=== PATIENT | male | born 1955 | race Caucasian/White ===

== ENCOUNTER 2022-11-02 15:23 | Observation (INO) | payer BC, OTHER ==
[2022-11-02 15:41] VITALS: BMI 28.4
[2022-11-02 17:38] LABS: PH,URINE 5.5 (5.0-8.0); URINE APPEARANCE CLEAR; URINE BILIRUBIN NEGATIVE (NEGATIVE); URINE COLOR YELLOW; URINE GLUCOSE (UA) NEGATIVE (NEGATIVE); URINE KETONE NEGATIVE (NEGATIVE); URINE LEUK ESTERASE NEGATIVE (NEGATIVE); URINE NITRITE NEGATIVE (NEGATIVE); URINE PROTEIN NEGATIVE (NEGATIVE); URINE UROBILINOGEN 0.2 mg/dL (0.2-1.0)
[2022-11-02 17:52] LABS: INR 0.97 (0.83-1.09); PROTHROMBIN TIME (PATIENT) 11.3 SEC (9.7-13.0)
[2022-11-02 17:55] LABS: ACTIVATED PTT 34.5 SECONDS (25.2-36.5)
[2022-11-02 17:56] LABS: POTASSIUM 4.2 mmol/L (3.5-5.1)
[2022-11-02 17:58] LABS: BLOOD UREA NITROGEN 9.9 mg/dL (7-18); CALCIUM 8.8 mg/dL (8.5-10.1)
[2022-11-02 18:00] LABS: ALBUMIN 2.9 g/dl (3.4-5.0)
[2022-11-02 18:03] LABS: BILIRUBIN,TOTAL 0.1 mg/dL (0.2-1); CREATININE 1.2 mg/dL (0.55-1.3); TOT PROT 5.8 g/dl (6.4-8.2)
[2022-11-02 18:07] LABS: N-TERMINAL BNP 32.1 pg/ml (5-125)
[2022-11-02 19:19] LABS: BASO % 0.6 % (0-2.0); EOS % 2.2 % (0-4.5); HEMATOCRIT 31.2 % (35.4-49); HEMOGLOBIN 10.7 GM/dL (11.7-16.9); LYMPH % 44.8 % (8-40); MCH 29.7 pg (25.7-33.7); MCHC 34.3 g/dl (32.0-35.9); MEAN CELL VOLUME 86.5 fl (80-96); MEAN PLT VOLUME 7.7 fl (7.5-11.1); MONO % 10.5 % (3.8-10.2); NEUT % 41.9 % (42.8-82.8); PLATELET COUNT 305 10^3/uL (134-434); RBC 3.61 M/mm3 (4.00-5.60); WHITE BLOOD COUNT 9.4 K/mm3 (4.0-10.0)
[2022-11-03] MEDS: risperiDONE 1 MG TABLET PO SCH ×2 (01:18→22:21)
[2022-11-03] MEDS: DIVALPROEX NA *ER* EXTEND REL 500 MG TABLET.SA (FP) PO SCH ×3 (01:23→22:21)
[2022-11-03] MEDS: INSULIN SLIDING SCALE (NOVOLOG) 1 VIAL SQ SCH ×4 (06:03→22:20)
[2022-11-03] MEDS ORDERED: LEVOTHYROXINE NA 50 MCG TABLET (FP) PO SCH (07:00)
[2022-11-03 08:38] LABS: POTASSIUM 4.3 mmol/L (3.5-5.1)
[2022-11-03 08:41] LABS: BASO % 0.7 % (0-2.0); EOS % 2.7 % (0-4.5); HEMATOCRIT 32.6 % (35.4-49); HEMOGLOBIN 11.3 GM/dL (11.7-16.9); LYMPH % 36.1 % (8-40); MCHC 34.8 g/dl (32.0-35.9); MEAN CELL VOLUME 86.3 fl (80-96); MEAN PLT VOLUME 8.6 fl (7.5-11.1); NEUT % 51.5 % (42.8-82.8); PLATELET COUNT 322 10^3/uL (134-434); RBC 3.78 M/mm3 (4.00-5.60); RDW 13.8 % (11.9-15.9); WHITE BLOOD COUNT 7.9 K/mm3 (4.0-10.0)
[2022-11-03 08:45] LABS: CALCIUM 9.4 mg/dL (8.5-10.1)
[2022-11-03 08:47] LABS: BLOOD UREA NITROGEN 9.1 mg/dL (7-18); MAGNESIUM 1.7 mg/dL (1.8-2.4)
[2022-11-03 08:49] LABS: PHOSPHOROUS 3.9 mg/dL (2.5-4.9)
[2022-11-03] MEDS: SERTRALINE HCL 50 MG TABLET (FP) PO SCH (10:44)
[2022-11-03] MEDS: PANTOPRAZOLE 20 MG TABLET PO SCH (10:44)
[2022-11-03] MEDS: GABAPENTIN 100 MG CAPSULE PO SCH ×2 (10:44→22:20)
[2022-11-03] MEDS: ENOXAPARIN NA (PORCINE) 40 MG/0.4 ML DISP.SYRIN SQ SCH (10:45)
[2022-11-03] MEDS: CYANOCOBALAMIN 1,000 MCG TABLET (FP) PO SCH (10:45)
[2022-11-03] MEDS: ATORVASTATIN CA 20 MG TABLET (FP) PO SCH (22:20)
[2022-11-04] MEDS: INSULIN SLIDING SCALE (NOVOLOG) 1 VIAL SQ SCH ×4 (06:24→21:18)
[2022-11-04] MEDS ORDERED: LEVOTHYROXINE NA 88 MCG TABLET (FP) PO SCH (06:28)
[2022-11-04] MEDS: LEVOTHYROXINE NA 88 MCG TABLET (FP) PO SCH (06:32)
[2022-11-04] MEDS: DIVALPROEX NA *ER* EXTEND REL 500 MG TABLET.SA (FP) PO SCH ×2 (10:36→21:19)
[2022-11-04] MEDS: CYANOCOBALAMIN 1,000 MCG TABLET (FP) PO SCH (10:41)
[2022-11-04] MEDS: GABAPENTIN 100 MG CAPSULE PO SCH ×2 (10:41→21:19)
[2022-11-04] MEDS: PANTOPRAZOLE 20 MG TABLET PO SCH (10:41)
[2022-11-04] MEDS: ENOXAPARIN NA (PORCINE) 40 MG/0.4 ML DISP.SYRIN SQ SCH (10:43)
[2022-11-04] MEDS: SERTRALINE HCL 50 MG TABLET (FP) PO SCH (10:43)
[2022-11-04] MEDS: risperiDONE 1 MG TABLET PO SCH (21:19)
[2022-11-04] MEDS: ATORVASTATIN CA 20 MG TABLET (FP) PO SCH (21:19)
[2022-11-05] MEDS: INSULIN SLIDING SCALE (NOVOLOG) 1 VIAL SQ SCH ×4 (06:07→21:27)
[2022-11-05] MEDS: LEVOTHYROXINE NA 88 MCG TABLET (FP) PO SCH (06:09)
[2022-11-05] MEDS ORDERED: LEVOTHYROXINE NA 100 MCG TABLET (FP) PO SCH (09:14)
[2022-11-05] MEDS: GABAPENTIN 100 MG CAPSULE PO SCH ×2 (09:30→21:19)
[2022-11-05] MEDS: SERTRALINE HCL 50 MG TABLET (FP) PO SCH (09:30)
[2022-11-05] MEDS: CYANOCOBALAMIN 1,000 MCG TABLET (FP) PO SCH (09:30)
[2022-11-05] MEDS: PANTOPRAZOLE 20 MG TABLET PO SCH (09:30)
[2022-11-05] MEDS: DIVALPROEX NA *ER* EXTEND REL 500 MG TABLET.SA (FP) PO SCH ×2 (09:31→21:19)
[2022-11-05] MEDS: ENOXAPARIN NA (PORCINE) 40 MG/0.4 ML DISP.SYRIN SQ SCH (09:31)
[2022-11-05] MEDS: CEFTRIAXONE 1 GM in DEXTROSE 5%-WATER - 50 ML IVPB SCH (11:31)
[2022-11-05 15:07] VITALS: RESP 18
[2022-11-05] MEDS ORDERED: INSULIN SLIDING SCALE (NOVOLOG) 1 VIAL SQ ONE (17:37)
[2022-11-05] MEDS: ATORVASTATIN CA 20 MG TABLET (FP) PO SCH (21:19)
[2022-11-05] MEDS: risperiDONE 1 MG TABLET PO SCH (21:19)
[2022-11-06] MEDS: INSULIN SLIDING SCALE (NOVOLOG) 1 VIAL SQ SCH ×3 (06:00→17:21)
[2022-11-06 08:17] LABS: BASO % 0.5 % (0-2.0); EOS % 2.1 % (0-4.5); HEMATOCRIT 34.5 % (35.4-49); HEMOGLOBIN 12.3 GM/dL (11.7-16.9); LYMPH % 25.2 % (8-40); MCH 30.6 pg (25.7-33.7); MCHC 35.5 g/dl (32.0-35.9); MONO % 10.1 % (3.8-10.2); NEUT % 62.1 % (42.8-82.8); PLATELET COUNT 329 10^3/uL (134-434); RBC 4.01 M/mm3 (4.00-5.60); RDW 14.2 % (11.9-15.9); WHITE BLOOD COUNT 10.9 K/mm3 (4.0-10.0)
[2022-11-06 08:29] LABS: CALCIUM 9.1 mg/dL (8.5-10.1)
[2022-11-06 08:30] LABS: BLOOD UREA NITROGEN 14.5 mg/dL (7-18)
[2022-11-06] MEDS: CEFTRIAXONE 1 GM in DEXTROSE 5%-WATER - 50 ML IVPB SCH (09:55)
[2022-11-06] MEDS: PANTOPRAZOLE 20 MG TABLET PO SCH (09:57)
[2022-11-06] MEDS: CYANOCOBALAMIN 1,000 MCG TABLET (FP) PO SCH (09:57)
[2022-11-06] MEDS: SERTRALINE HCL 50 MG TABLET (FP) PO SCH (09:57)
[2022-11-06] MEDS: GABAPENTIN 100 MG CAPSULE PO SCH (09:57)
[2022-11-06] MEDS: ENOXAPARIN NA (PORCINE) 40 MG/0.4 ML DISP.SYRIN SQ SCH (09:58)
[2022-11-06] MEDS: DIVALPROEX NA *ER* EXTEND REL 500 MG TABLET.SA (FP) PO SCH (09:58)
[2022-11-06] MEDS ORDERED: metFORMIN HCL 500 MG TABLET (FP) PO SCH (16:30)
[2022-11-06 16:31] VITALS: BP 131/78; PULSE 81; TEMP 98.1
[2022-11-06] MEDS ORDERED: clonazePAM 0.5 MG TABLET PO SCH (22:00)
[2022-11-07] MEDS ORDERED: LISINOPRIL 5 MG TABLET PO SCH (10:00)
== END 2022-11-06 19:08 ==
LOC: JER 15:23 → JERBED 18:59 → J5S 11-03 00:51
PROVIDERS: ADMIT Internal Medicine; ATTEND Internal Medicine
PROC: 3E03329 Introduction of Other Anti-infective into Peripheral Vein, Percutaneous Approach (ICD-10-PCS; principal; 2022-11-02)
PROC: 3E013VG Introduction of Insulin into Subcutaneous Tissue, Percutaneous Approach (ICD-10-PCS; 2022-11-02)
PROC: 3E013GC Introduction of Other Therapeutic Substance into Subcutaneous Tissue, Percutaneous Approach (ICD-10-PCS; 2022-11-02)
DX: R26.89 Other abnormalities of gait and mobility (principal); Z91.81 History of falling; I10 Essential (primary) hypertension; E78.5 Hyperlipidemia, unspecified; E11.9 Type 2 diabetes mellitus without complications; F17.210 Nicotine dependence, cigarettes, uncomplicated; E03.9 Hypothyroidism, unspecified; F25.9 Schizoaffective disorder, unspecified; F31.9 Bipolar disorder, unspecified; F41.0 Panic disorder [episodic paroxysmal anxiety]; Z79.84 Long term (current) use of oral hypoglycemic drugs; Z88.8 Allergy status to other drugs, medicaments and biological substances; R42 Dizziness and giddiness; G40.909 Epilepsy, unspecified, not intractable, without status epilepticus; N39.0 Urinary tract infection, site not specified
CPT/HCPCS: 0241U-QW; 36415; 70450-TC; 71045-TC-FY; 80048; 80053; 81003; 82746; 82962; 83735; 83880; 84100; 84443; 85025; 85610; 85730; 87086; 87186; 93005; 93010; 96372; 96374; 97116-GP; 97161-GP; 99285-25; C9803-CS; G0378; U0003; U0005

== ENCOUNTER 2022-11-14 13:31 | Emergency (ER) | payer BC, OTHER ==
[2022-11-14 13:53] VITALS: BMI 63.0
[2022-11-14] MEDS ORDERED: LIDOCAINE 5% TOPICAL PATCH TP ONE (14:11)
[2022-11-14] MEDS ORDERED: LIDOCAINE 5% TOPICAL PATCH ONE (14:16)
[2022-11-14 18:07] LABS: BASO % 0.8 % (0-2.0); EOS % 2.6 % (0-4.5); HEMATOCRIT 35.1 % (35.4-49); HEMOGLOBIN 12.1 GM/dL (11.7-16.9); LYMPH % 41.3 % (8-40); MCH 29.7 pg (25.7-33.7); MCHC 34.4 g/dl (32.0-35.9); MEAN CELL VOLUME 86.2 fl (80-96); MEAN PLT VOLUME 7.7 fl (7.5-11.1); NEUT % 43.3 % (42.8-82.8); PLATELET COUNT 356 10^3/uL (134-434); RBC 4.08 M/mm3 (4.00-5.60); RDW 14.6 % (11.9-15.9); WHITE BLOOD COUNT 9.1 K/mm3 (4.0-10.0)
[2022-11-14 18:24] LABS: POTASSIUM 4.5 mmol/L (3.5-5.1)
[2022-11-14 18:26] LABS: BLOOD UREA NITROGEN 9.7 mg/dL (7-18); CALCIUM 9.2 mg/dL (8.5-10.1)
[2022-11-14 18:27] LABS: ALBUMIN 3.2 g/dl (3.4-5.0)
[2022-11-14 18:31] LABS: BILIRUBIN,TOTAL 0.2 mg/dL (0.2-1); TOT PROT 6.3 g/dl (6.4-8.2)
[2022-11-14] MEDS ORDERED: LIDOCAINE PATCH REMOVAL MC SCH (22:00)
[2022-11-15] MEDS ORDERED: IBUPROFEN 400 MG TABLET (FP) PO ONE ×2 (00:31→00:51)
[2022-11-15 00:46] VITALS: BP 146/82; PULSE 86; RESP 16; TEMP 97.8
== END 2022-11-15 02:06 | disposition home or self-care (01) ==
LOC: JER 13:31
DX: M54.50 Low back pain, unspecified (principal); W01.0XXA Fall on same level from slipping, tripping and stumbling without subsequent striking against object, initial encounter
CPT/HCPCS: 36415; 72100-TC-FY; 73130-TC-RT-FY; 80053; 85025; 99284-25

== ENCOUNTER 2023-01-27 21:18 | Inpatient (IN) | payer OTHER ==
[2023-01-27 22:19] LABS: BASO % 0.5 % (0-2.0); EOS % 1.8 % (0-4.5); HEMATOCRIT 31.2 % (35.4-49); HEMOGLOBIN 10.4 GM/dL (11.7-16.9); LYMPH % 25.6 % (8-40); MCH 28.9 pg (25.7-33.7); MCHC 33.2 g/dl (32.0-35.9); MEAN CELL VOLUME 87.1 fl (80-96); MEAN PLT VOLUME 7.8 fl (7.5-11.1); MONO % 16.2 % (3.8-10.2); NEUT % 55.9 % (42.8-82.8); PLATELET COUNT 242 10^3/uL (134-434); RBC 3.59 M/mm3 (4.00-5.60); RDW 14.8 % (11.9-15.9)
[2023-01-27 22:35] LABS: PH,URINE 5.5 (5.0-8.0); URINE APPEARANCE CLEAR; URINE BILIRUBIN NEGATIVE (NEGATIVE); URINE COLOR YELLOW; URINE GLUCOSE (UA) NEGATIVE (NEGATIVE); URINE KETONE NEGATIVE (NEGATIVE); URINE LEUK ESTERASE NEGATIVE (NEGATIVE); URINE NITRITE NEGATIVE (NEGATIVE); URINE PROTEIN NEGATIVE (NEGATIVE); URINE UROBILINOGEN 0.2 mg/dL (0.2-1.0)
[2023-01-27 22:39] LABS: CHLORIDE 103 mmol/L (98-107); POTASSIUM 3.6 mmol/L (3.5-5.1); SODIUM 137 mmol/L (136-145)
[2023-01-27 22:41] LABS: ALBUMIN 2.8 g/dl (3.4-5.0); ANION GAP 8 MMOL/L (8-16); BLOOD UREA NITROGEN 10.2 mg/dL (7-18); CALCIUM 8.1 mg/dL (8.5-10.1); CO2 26 mmol/L (21-32); GLUCOSE,RANDOM 65 mg/dL (74-106)
[2023-01-27 22:44] LABS: CREATININE 1.1 mg/dL (0.55-1.3); SGPT/ALT 14 U/L (13-61)
[2023-01-27 22:45] LABS: SGOT/AST 8 U/L (15-37)
[2023-01-27 22:46] LABS: BILIRUBIN,TOTAL < 0.1 mg/dL (0.2-1); TOT PROT 5.6 g/dl (6.4-8.2)
[2023-01-27 22:47] LABS: ALK PHOS 74 U/L (45-117)
[2023-01-27] MEDS ORDERED: DEXTROSE 10%-WATER - 1,000 ML IV SCH (23:45)
[2023-01-28] MEDS: DEXTROSE 5%-WATER - 1,000 ML IV SCH (02:18)
[2023-01-28] MEDS ORDERED: metroNIDAZOLE 500 MG TABLET PO ONE (03:27)
[2023-01-28] MEDS ORDERED: DIVALPROEX NA *ER* EXTEND REL 250 MG TABLET.SA ONE (05:52)
[2023-01-28] MEDS ORDERED: metroNIDAZOLE 250 MG TABLET ONE (05:52)
[2023-01-28] MEDS ORDERED: DIVALPROEX NA *ER* EXTEND REL 500 MG TABLET.SA (FP) PO SCH ×2 (06:00→10:00)
[2023-01-28] MEDS ORDERED: LEVOTHYROXINE NA 50 MCG TABLET (FP) ONE ×2 (07:22→07:23)
[2023-01-28] MEDS: LEVOTHYROXINE NA 100 MCG TABLET (FP) PO SCH (07:35)
[2023-01-28 07:55] LABS: BASO % 0.3 % (0-2.0); EOS % 2.4 % (0-4.5); HEMOGLOBIN 12.1 GM/dL (11.7-16.9); LYMPH % 21.4 % (8-40); MCH 29.6 pg (25.7-33.7); MCHC 32.6 g/dl (32.0-35.9); MEAN CELL VOLUME 90.7 fl (80-96); MEAN PLT VOLUME 8.4 fl (7.5-11.1); NEUT % 58.9 % (42.8-82.8); PLATELET COUNT 229 10^3/uL (134-434); RBC 4.07 M/mm3 (4.00-5.60); RDW 14.7 % (11.9-15.9)
[2023-01-28 08:52] LABS: BLOOD UREA NITROGEN 10.8 mg/dL (7-18); CALCIUM 8.8 mg/dL (8.5-10.1); CREATININE 1.1 mg/dL (0.55-1.3); POTASSIUM 4.1 mmol/L (3.5-5.1)
[2023-01-28] MEDS ORDERED: PANTOPRAZOLE 20 MG TABLET PO ONE (09:17)
[2023-01-28] MEDS ORDERED: buPROPion HCL 100 MG TABLET ONE (09:17)
[2023-01-28] MEDS ORDERED: SERTRALINE HCL 50 MG TABLET (FP) ONE (09:17)
[2023-01-28] MEDS ORDERED: LOSARTAN POTASSIUM 50 MG TABLET ONE (09:17)
[2023-01-28] MEDS ORDERED: GABAPENTIN 100 MG CAPSULE ONE ×2 (09:18→22:17)
[2023-01-28] MEDS: PANTOPRAZOLE 20 MG TABLET PO SCH (09:27)
[2023-01-28] MEDS: GABAPENTIN 100 MG CAPSULE PO SCH ×2 (09:27→23:08)
[2023-01-28] MEDS: LOSARTAN POTASSIUM 50 MG TABLET PO SCH (09:27)
[2023-01-28] MEDS: SERTRALINE HCL 50 MG TABLET (FP) PO SCH (09:28)
[2023-01-28] MEDS ORDERED: DIVALPROEX SODIUM 500 MG TABLET E.C. ONE (09:29)
[2023-01-28] MEDS: DIVALPROEX NA *ER* EXTEND REL 500 MG TABLET.SA (FP) PO SCH (09:33)
[2023-01-28] MEDS: CYANOCOBALAMIN 1,000 MCG TABLET (FP) PO SCH (11:20)
[2023-01-28 14:42] LABS: MAGNESIUM 1.6 mg/dL (1.8-2.4)
[2023-01-28 14:46] LABS: PHOSPHOROUS 3.3 mg/dL (2.5-4.9)
[2023-01-28] MEDS: INSULIN SLIDING SCALE (NOVOLOG) 1 VIAL SQ SCH (16:22)
[2023-01-28] MEDS ORDERED: risperiDONE 1 MG TABLET PO SCH (22:00)
[2023-01-28] MEDS ORDERED: ATORVASTATIN CA 20 MG TABLET (FP) ONE (22:16)
[2023-01-28] MEDS: ATORVASTATIN CA 20 MG TABLET (FP) PO SCH (23:08)
[2023-01-29] MEDS: DEXTROSE 5%-WATER - 1,000 ML IV SCH (03:00)
[2023-01-29] MEDS: INSULIN SLIDING SCALE (NOVOLOG) 1 VIAL SQ SCH ×3 (07:18→19:00)
[2023-01-29] MEDS ORDERED: LEVOTHYROXINE NA 100 MCG TABLET (FP) ONE (07:19)
[2023-01-29] MEDS: LEVOTHYROXINE NA 100 MCG TABLET (FP) PO SCH (07:23)
[2023-01-29 08:37] LABS: BASO % 0.6 % (0-2.0); EOS % 2.1 % (0-4.5); HEMATOCRIT 36.6 % (35.4-49); HEMOGLOBIN 12.1 GM/dL (11.7-16.9); LYMPH % 27.9 % (8-40); MCH 29.1 pg (25.7-33.7); MCHC 33.1 g/dl (32.0-35.9); MEAN CELL VOLUME 87.8 fl (80-96); MEAN PLT VOLUME 9.1 fl (7.5-11.1); MONO % 17.9 % (3.8-10.2); NEUT % 51.5 % (42.8-82.8); PLATELET COUNT 258 10^3/uL (134-434); RBC 4.17 M/mm3 (4.00-5.60); RDW 14.6 % (11.9-15.9); WHITE BLOOD COUNT 7.6 K/mm3 (4.0-10.0)
[2023-01-29 08:55] LABS: POTASSIUM 4.2 mmol/L (3.5-5.1)
[2023-01-29 08:57] LABS: BLOOD UREA NITROGEN 12.7 mg/dL (7-18); CALCIUM 8.9 mg/dL (8.5-10.1)
[2023-01-29] MEDS ORDERED: PANTOPRAZOLE 20 MG TABLET PO ONE (10:54)
[2023-01-29] MEDS ORDERED: SERTRALINE HCL 50 MG TABLET (FP) ONE (10:54)
[2023-01-29] MEDS ORDERED: ASCORBIC ACID 500 MG TABLET (FP) ONE (10:54)
[2023-01-29] MEDS ORDERED: buPROPion HCL 100 MG TABLET ONE (10:54)
[2023-01-29] MEDS ORDERED: LOSARTAN POTASSIUM 50 MG TABLET ONE (10:54)
[2023-01-29] MEDS ORDERED: GABAPENTIN 100 MG CAPSULE ONE (10:55)
[2023-01-29] MEDS: LOSARTAN POTASSIUM 50 MG TABLET PO SCH (11:03)
[2023-01-29] MEDS: GABAPENTIN 100 MG CAPSULE PO SCH ×2 (11:03→21:53)
[2023-01-29] MEDS: SERTRALINE HCL 50 MG TABLET (FP) PO SCH (11:04)
[2023-01-29] MEDS: CYANOCOBALAMIN 1,000 MCG TABLET (FP) PO SCH (11:04)
[2023-01-29] MEDS: PANTOPRAZOLE 20 MG TABLET PO SCH (11:04)
[2023-01-29] MEDS: DIVALPROEX NA *ER* EXTEND REL 500 MG TABLET.SA (FP) PO SCH (12:47)
[2023-01-29] MEDS ORDERED: MAGNESIUM 1GM/D5W - 1 GM/100 ML IVPB IVPB ONE (15:55)
[2023-01-29] MEDS ORDERED: INSULIN (NOVOLOG) ASPART 100 UNITS/ML 10ML VIAL ONE (18:58)
[2023-01-29 19:54] VITALS: BMI 25.9
[2023-01-29] MEDS: ATORVASTATIN CA 20 MG TABLET (FP) PO SCH (21:53)
[2023-01-29] MEDS: risperiDONE 1 MG TABLET PO SCH (21:55)
[2023-01-30] MEDS: DEXTROSE 5%-WATER - 1,000 ML IV SCH (02:00)
[2023-01-30] MEDS: LEVOTHYROXINE NA 100 MCG TABLET (FP) PO SCH (06:08)
[2023-01-30 08:45] LABS: BASO % 0.7 % (0-2.0); EOS % 2.2 % (0-4.5); HEMOGLOBIN 12.5 GM/dL (11.7-16.9); MCH 28.9 pg (25.7-33.7); MEAN CELL VOLUME 87.7 fl (80-96); MEAN PLT VOLUME 9.1 fl (7.5-11.1); MONO % 11.9 % (3.8-10.2); NEUT % 58.2 % (42.8-82.8); PLATELET COUNT 288 10^3/uL (134-434); RBC 4.34 M/mm3 (4.00-5.60); RDW 14.7 % (11.9-15.9); WHITE BLOOD COUNT 8.5 K/mm3 (4.0-10.0)
[2023-01-30] MEDS: INSULIN SLIDING SCALE (NOVOLOG) 1 VIAL SQ SCH ×3 (08:50→18:56)
[2023-01-30 09:02] LABS: POTASSIUM 4.3 mmol/L (3.5-5.1)
[2023-01-30 09:04] LABS: BLOOD UREA NITROGEN 16.7 mg/dL (7-18)
[2023-01-30 09:06] LABS: MAGNESIUM 1.9 mg/dL (1.8-2.4)
[2023-01-30 09:08] LABS: CREATININE 1.2 mg/dL (0.55-1.3)
[2023-01-30] MEDS: CYANOCOBALAMIN 1,000 MCG TABLET (FP) PO SCH (15:28)
[2023-01-30] MEDS: SERTRALINE HCL 50 MG TABLET (FP) PO SCH (15:28)
[2023-01-30] MEDS: PANTOPRAZOLE 20 MG TABLET PO SCH (15:29)
[2023-01-30] MEDS: LOSARTAN POTASSIUM 50 MG TABLET PO SCH (15:29)
[2023-01-30] MEDS: DIVALPROEX NA *ER* EXTEND REL 500 MG TABLET.SA (FP) PO SCH (15:30)
[2023-01-30] MEDS: GABAPENTIN 100 MG CAPSULE PO SCH ×2 (15:33→21:53)
[2023-01-30] MEDS: risperiDONE 1 MG TABLET PO SCH (21:53)
[2023-01-30] MEDS: ATORVASTATIN CA 20 MG TABLET (FP) PO SCH (21:53)
[2023-01-31] MEDS ORDERED: INSULIN (NOVOLOG) ASPART 100 UNITS/ML 10ML VIAL ONE (05:39)
[2023-01-31] MEDS: LEVOTHYROXINE NA 100 MCG TABLET (FP) PO SCH (06:11)
[2023-01-31] MEDS: INSULIN SLIDING SCALE (NOVOLOG) 1 VIAL SQ SCH ×3 (06:11→16:48)
[2023-01-31] MEDS: CYANOCOBALAMIN 1,000 MCG TABLET (FP) PO SCH (12:01)
[2023-01-31] MEDS: LOSARTAN POTASSIUM 50 MG TABLET PO SCH (12:01)
[2023-01-31] MEDS: PANTOPRAZOLE 20 MG TABLET PO SCH (12:01)
[2023-01-31] MEDS: GABAPENTIN 100 MG CAPSULE PO SCH ×2 (12:01→21:43)
[2023-01-31] MEDS: SERTRALINE HCL 50 MG TABLET (FP) PO SCH (12:02)
[2023-01-31] MEDS: DIVALPROEX NA *ER* EXTEND REL 500 MG TABLET.SA (FP) PO SCH (12:03)
[2023-01-31] MEDS: risperiDONE 1 MG TABLET PO SCH (21:43)
[2023-01-31] MEDS: ATORVASTATIN CA 20 MG TABLET (FP) PO SCH (21:43)
[2023-02-01] MEDS: LEVOTHYROXINE NA 100 MCG TABLET (FP) PO SCH (06:02)
[2023-02-01] MEDS ORDERED: INSULIN (NOVOLOG) ASPART 100 UNITS/ML 10ML VIAL ONE ×2 (07:00→12:15)
[2023-02-01] MEDS: INSULIN SLIDING SCALE (NOVOLOG) 1 VIAL SQ SCH ×3 (07:06→17:47)
[2023-02-01] MEDS: LOSARTAN POTASSIUM 50 MG TABLET PO SCH (10:33)
[2023-02-01] MEDS: GABAPENTIN 100 MG CAPSULE PO SCH ×2 (10:33→21:21)
[2023-02-01] MEDS: SERTRALINE HCL 50 MG TABLET (FP) PO SCH (10:33)
[2023-02-01] MEDS: PANTOPRAZOLE 20 MG TABLET PO SCH (10:33)
[2023-02-01] MEDS: CYANOCOBALAMIN 1,000 MCG TABLET (FP) PO SCH (10:33)
[2023-02-01] MEDS: DIVALPROEX NA *ER* EXTEND REL 500 MG TABLET.SA (FP) PO SCH (10:34)
[2023-02-01] MEDS: ATORVASTATIN CA 20 MG TABLET (FP) PO SCH (21:21)
[2023-02-01] MEDS: risperiDONE 1 MG TABLET PO SCH (21:22)
[2023-02-02] MEDS: LEVOTHYROXINE NA 100 MCG TABLET (FP) PO SCH (06:17)
[2023-02-02] MEDS: INSULIN SLIDING SCALE (NOVOLOG) 1 VIAL SQ SCH ×3 (06:17→16:46)
[2023-02-02] MEDS: PANTOPRAZOLE 20 MG TABLET PO SCH (09:48)
[2023-02-02] MEDS: SERTRALINE HCL 50 MG TABLET (FP) PO SCH (09:48)
[2023-02-02] MEDS: CYANOCOBALAMIN 1,000 MCG TABLET (FP) PO SCH (09:49)
[2023-02-02] MEDS: LOSARTAN POTASSIUM 50 MG TABLET PO SCH (09:49)
[2023-02-02] MEDS: GABAPENTIN 100 MG CAPSULE PO SCH ×2 (09:49→22:34)
[2023-02-02] MEDS: DIVALPROEX NA *ER* EXTEND REL 500 MG TABLET.SA (FP) PO SCH (09:50)
[2023-02-02] MEDS: ATORVASTATIN CA 20 MG TABLET (FP) PO SCH (22:33)
[2023-02-02] MEDS: risperiDONE 1 MG TABLET PO SCH (22:34)
[2023-02-03] MEDS: LEVOTHYROXINE NA 100 MCG TABLET (FP) PO SCH (06:09)
[2023-02-03] MEDS: INSULIN SLIDING SCALE (NOVOLOG) 1 VIAL SQ SCH ×3 (06:30→17:23)
[2023-02-03] MEDS: GABAPENTIN 100 MG CAPSULE PO SCH ×2 (11:46→21:55)
[2023-02-03] MEDS: LOSARTAN POTASSIUM 50 MG TABLET PO SCH (11:46)
[2023-02-03] MEDS: CYANOCOBALAMIN 1,000 MCG TABLET (FP) PO SCH (11:47)
[2023-02-03] MEDS: PANTOPRAZOLE 20 MG TABLET PO SCH (11:47)
[2023-02-03] MEDS: SERTRALINE HCL 50 MG TABLET (FP) PO SCH (11:47)
[2023-02-03] MEDS: DIVALPROEX NA *ER* EXTEND REL 500 MG TABLET.SA (FP) PO SCH (11:49)
[2023-02-03] MEDS ORDERED: INSULIN (NOVOLOG) ASPART 100 UNITS/ML 10ML VIAL ONE (12:08)
[2023-02-03] MEDS: AMOX TR/POT CLAV 875MG/125MG TABLETS (FP) PO SCH (18:23)
[2023-02-03] MEDS: ATORVASTATIN CA 20 MG TABLET (FP) PO SCH (21:55)
[2023-02-03] MEDS: risperiDONE 1 MG TABLET PO SCH (21:55)
[2023-02-03] MEDS ORDERED: PATIENT'S OWN MEDICATION (NON-FORMULARY) (Metformin Hcl [Glucophage] 1,000 MG Tablet) PO SCH (22:00)
[2023-02-03] MEDS: PRAMIPEXOLE DIHYDROCHLORIDE 0.125 MG TABLET PO SCH (22:03)
[2023-02-04] MEDS: PRAMIPEXOLE DIHYDROCHLORIDE 0.125 MG TABLET PO SCH ×3 (06:27→21:46)
[2023-02-04] MEDS: LEVOTHYROXINE NA 100 MCG TABLET (FP) PO SCH (06:27)
[2023-02-04] MEDS: metFORMIN HCL 500 MG TABLET (FP) PO SCH ×2 (06:27→17:13)
[2023-02-04] MEDS: INSULIN SLIDING SCALE (NOVOLOG) 1 VIAL SQ SCH ×3 (06:32→17:35)
[2023-02-04] MEDS: PANTOPRAZOLE 20 MG TABLET PO SCH (11:00)
[2023-02-04] MEDS: SERTRALINE HCL 50 MG TABLET (FP) PO SCH (11:00)
[2023-02-04] MEDS: LOSARTAN POTASSIUM 50 MG TABLET PO SCH (11:00)
[2023-02-04] MEDS: GABAPENTIN 100 MG CAPSULE PO SCH ×2 (11:01→21:46)
[2023-02-04] MEDS: CYANOCOBALAMIN 1,000 MCG TABLET (FP) PO SCH (11:01)
[2023-02-04] MEDS: DIVALPROEX NA *ER* EXTEND REL 500 MG TABLET.SA (FP) PO SCH (11:02)
[2023-02-04] MEDS: AMOX TR/POT CLAV 875MG/125MG TABLETS (FP) PO SCH ×2 (11:03→17:13)
[2023-02-04] MEDS ORDERED: ENOXAPARIN NA (PORCINE) 40 MG/0.4 ML DISP.SYRIN SQ SCH (14:00)
[2023-02-04] MEDS ORDERED: INSULIN (NOVOLOG) ASPART 100 UNITS/ML 10ML VIAL ONE (17:31)
[2023-02-04] MEDS: ATORVASTATIN CA 20 MG TABLET (FP) PO SCH (21:46)
[2023-02-04] MEDS: risperiDONE 1 MG TABLET PO SCH (21:46)
[2023-02-04 23:13] VITALS: PULSE 76
[2023-02-05 02:42] VITALS: BP 127/77; RESP 18; TEMP 98.5
[2023-02-05] MEDS: MUPIROCIN 2% TOPICAL OINTMENT FOR DECOLONIZATION NS SCH (04:54)
== END 2023-02-05 02:30 | disposition short-term general hospital (02) | DRG 638 ==
LOC: JER 21:18 → JERBED 22:22 → OBSVTOIN 01-29 14:26 → J8W 01-29 15:19
PROVIDERS: ADMIT Internal Medicine; ATTEND Internal Medicine
DX: E11.649 Type 2 diabetes mellitus with hypoglycemia without coma (principal); G21.19 Other drug induced secondary parkinsonism; L03.113 Cellulitis of right upper limb; I10 Essential (primary) hypertension; E78.5 Hyperlipidemia, unspecified; E03.9 Hypothyroidism, unspecified; F10.10 Alcohol abuse, uncomplicated; E11.40 Type 2 diabetes mellitus with diabetic neuropathy, unspecified; F31.9 Bipolar disorder, unspecified; F41.9 Anxiety disorder, unspecified; G91.1 Obstructive hydrocephalus; R26.2 Difficulty in walking, not elsewhere classified; D43.2 Neoplasm of uncertain behavior of brain, unspecified
CPT/HCPCS: 36415; 70450-TC; 70551-TC; 70552-TC; 71045-TC-FY; 80048; 80053; 80164; 80307; 81003; 82550; 82607; 82962; 83036; 83540; 83550; 83735; 84100; 84443; 84484; 85025; 85651; 86140; 86780; 93005; 93010; 97116-GP; 97161-GP; 99285-25; G0378

== ENCOUNTER 2023-05-30 09:00 | Inpatient (IN) | payer OTHER ==
[2023-05-30] MEDS ORDERED: ACETAMINOPHEN 500 MG TABLET (FP) PO ONE (12:17)
[2023-05-30] MEDS ORDERED: ACETAMINOPHEN 325 MG TABLET (FP) ONE (13:21)
[2023-05-30 13:57] LABS: BASO % 0.6 % (0-2.0); EOS % 0.5 % (0-4.5); HEMATOCRIT 37.1 % (35.4-49); HEMOGLOBIN 12.1 GM/dL (11.7-16.9); LYMPH % 42.4 % (8-40); MCHC 32.5 g/dl (32.0-35.9); MEAN CELL VOLUME 95.3 fl (80-96); MONO % 10.8 % (3.8-10.2); NEUT % 45.7 % (42.8-82.8); PLATELET COUNT 240 10^3/uL (134-434); RDW 15.7 % (11.9-15.9); WHITE BLOOD COUNT 6.6 K/mm3 (4.0-10.0)
[2023-05-30 14:13] LABS: POTASSIUM 4.1 mmol/L (3.5-5.1)
[2023-05-30 14:16] LABS: ALBUMIN 2.9 g/dl (3.4-5.0); CALCIUM 9.1 mg/dL (8.5-10.1)
[2023-05-30 14:17] LABS: BLOOD UREA NITROGEN 18.7 mg/dL (7-18)
[2023-05-30 14:20] LABS: TOT PROT 6.1 g/dl (6.4-8.2)
[2023-05-30 14:21] LABS: BILIRUBIN,TOTAL 0.2 mg/dL (0.2-1)
[2023-05-30 17:25] VITALS: BMI 21.8
[2023-05-30] MEDS: INSULIN SLIDING SCALE (NOVOLOG) 1 VIAL SQ SCH ×2 (17:37→21:45)
[2023-05-30] MEDS: DIVALPROEX NA *ER* EXTEND REL 500 MG TABLET.SA (FP) PO SCH (21:37)
[2023-05-30] MEDS: ATORVASTATIN CA 20 MG TABLET (FP) PO SCH (21:38)
[2023-05-30] MEDS: risperiDONE 1 MG TABLET PO SCH (21:38)
[2023-05-30] MEDS: PRAMIPEXOLE DIHYDROCHLORIDE 0.25 MG TABLET PO SCH (21:38)
[2023-05-30] MEDS: GABAPENTIN 100 MG CAPSULE PO SCH (21:38)
[2023-05-30] MEDS: APIXABAN 2.5 MG TABLET PO SCH (21:38)
[2023-05-30] MEDS: clonazePAM 0.5 MG TABLET PO SCH (21:38)
[2023-05-31] MEDS: LEVOTHYROXINE NA 100 MCG TABLET (FP) PO SCH (06:09)
[2023-05-31] MEDS: INSULIN SLIDING SCALE (NOVOLOG) 1 VIAL SQ SCH ×4 (06:15→21:23)
[2023-05-31 09:22] LABS: HEMATOCRIT 33.7 % (35.4-49); MCH 30.9 pg (25.7-33.7); MCHC 32.5 g/dl (32.0-35.9); MEAN CELL VOLUME 95.1 fl (80-96); MEAN PLT VOLUME 8.8 fl (7.5-11.1); PLATELET COUNT 228 10^3/uL (134-434); RBC 3.54 M/mm3 (4.00-5.60); RDW 15.7 % (11.9-15.9); WHITE BLOOD COUNT 6.5 K/mm3 (4.0-10.0)
[2023-05-31 09:51] LABS: POTASSIUM 3.3 mmol/L (3.5-5.1)
[2023-05-31 10:17] LABS: CALCIUM 8.5 mg/dL (8.5-10.1)
[2023-05-31 10:18] LABS: BLOOD UREA NITROGEN 17.7 mg/dL (7-18)
[2023-05-31 10:21] LABS: CREATININE 0.9 mg/dL (0.55-1.3)
[2023-05-31] MEDS: DIVALPROEX NA *ER* EXTEND REL 500 MG TABLET.SA (FP) PO SCH ×2 (10:23→21:00)
[2023-05-31] MEDS: APIXABAN 2.5 MG TABLET PO SCH ×2 (10:23→21:00)
[2023-05-31] MEDS: CYANOCOBALAMIN 1,000 MCG TABLET (FP) PO SCH (10:23)
[2023-05-31] MEDS: SERTRALINE HCL 50 MG TABLET (FP) PO SCH (10:23)
[2023-05-31] MEDS: POLYETHYLENE GLYCOL (HEALTHYLAX) 3350 17 GM PACKET PO SCH (10:23)
[2023-05-31] MEDS: FOLIC ACID 1 MG TABLET (FP) PO SCH (10:23)
[2023-05-31] MEDS: GABAPENTIN 100 MG CAPSULE PO SCH ×2 (10:23→21:15)
[2023-05-31] MEDS: clonazePAM 0.5 MG TABLET PO SCH ×2 (10:24→21:00)
[2023-05-31] MEDS: NICOTINE 21 MG/24 HOURS TOPICAL PATCH TD SCH (10:24)
[2023-05-31] MEDS: risperiDONE 0.25 MG TABLET PO SCH (10:25)
[2023-05-31] MEDS ORDERED: POTASSIUM CHLORIDE ORAL LIQUID 20 MEQ/15 ML PO ONE (11:16)
[2023-05-31] MEDS: PRAMIPEXOLE DIHYDROCHLORIDE 0.25 MG TABLET PO SCH (20:59)
[2023-05-31] MEDS: risperiDONE 1 MG TABLET PO SCH (20:59)
[2023-05-31] MEDS: ATORVASTATIN CA 20 MG TABLET (FP) PO SCH (21:00)
[2023-06-01] MEDS: LEVOTHYROXINE NA 100 MCG TABLET (FP) PO SCH (06:31)
[2023-06-01] MEDS: INSULIN SLIDING SCALE (NOVOLOG) 1 VIAL SQ SCH ×4 (06:31→21:32)
[2023-06-01] MEDS: GABAPENTIN 100 MG CAPSULE PO SCH ×2 (09:31→21:11)
[2023-06-01] MEDS: APIXABAN 2.5 MG TABLET PO SCH ×2 (09:32→21:11)
[2023-06-01] MEDS: risperiDONE 0.25 MG TABLET PO SCH (09:32)
[2023-06-01] MEDS: clonazePAM 0.5 MG TABLET PO SCH ×2 (09:32→21:11)
[2023-06-01] MEDS: CYANOCOBALAMIN 1,000 MCG TABLET (FP) PO SCH (09:32)
[2023-06-01] MEDS: DIVALPROEX NA *ER* EXTEND REL 500 MG TABLET.SA (FP) PO SCH ×2 (09:32→21:11)
[2023-06-01] MEDS: SERTRALINE HCL 50 MG TABLET (FP) PO SCH (09:32)
[2023-06-01] MEDS: FOLIC ACID 1 MG TABLET (FP) PO SCH (09:32)
[2023-06-01] MEDS: POLYETHYLENE GLYCOL (HEALTHYLAX) 3350 17 GM PACKET PO SCH (09:33)
[2023-06-01] MEDS: NICOTINE 21 MG/24 HOURS TOPICAL PATCH TD SCH (09:33)
[2023-06-01 10:24] LABS: POTASSIUM 4.6 mmol/L (3.5-5.1)
[2023-06-01 10:29] LABS: BLOOD UREA NITROGEN 11.8 mg/dL (7-18); MAGNESIUM 1.5 mg/dL (1.8-2.4)
[2023-06-01] MEDS: risperiDONE 1 MG TABLET PO SCH (21:09)
[2023-06-01] MEDS: ATORVASTATIN CA 20 MG TABLET (FP) PO SCH (21:11)
[2023-06-01] MEDS: PRAMIPEXOLE DIHYDROCHLORIDE 0.25 MG TABLET PO SCH (21:11)
[2023-06-02] MEDS: LEVOTHYROXINE NA 100 MCG TABLET (FP) PO SCH (06:02)
[2023-06-02] MEDS: INSULIN SLIDING SCALE (NOVOLOG) 1 VIAL SQ SCH ×4 (06:02→22:12)
[2023-06-02 09:37] LABS: BASO % 0.4 % (0-2.0); EOS % 1.1 % (0-4.5); HEMATOCRIT 35.4 % (35.4-49); HEMOGLOBIN 12.1 GM/dL (11.7-16.9); LYMPH % 53.7 % (8-40); MCH 31.9 pg (25.7-33.7); MCHC 34.3 g/dl (32.0-35.9); MEAN CELL VOLUME 93.1 fl (80-96); MEAN PLT VOLUME 8.3 fl (7.5-11.1); MONO % 10.1 % (3.8-10.2); NEUT % 34.7 % (42.8-82.8); PLATELET COUNT 240 10^3/uL (134-434); RDW 15.9 % (11.9-15.9); WHITE BLOOD COUNT 6.6 K/mm3 (4.0-10.0)
[2023-06-02 10:06] LABS: POTASSIUM 3.9 mmol/L (3.5-5.1)
[2023-06-02 10:07] LABS: CALCIUM 8.5 mg/dL (8.5-10.1)
[2023-06-02 10:08] LABS: BLOOD UREA NITROGEN 17.7 mg/dL (7-18)
[2023-06-02] MEDS: SERTRALINE HCL 50 MG TABLET (FP) PO SCH (10:29)
[2023-06-02] MEDS: APIXABAN 2.5 MG TABLET PO SCH ×2 (10:30→21:25)
[2023-06-02] MEDS: clonazePAM 0.5 MG TABLET PO SCH ×2 (10:30→21:24)
[2023-06-02] MEDS: FOLIC ACID 1 MG TABLET (FP) PO SCH (10:30)
[2023-06-02] MEDS: GABAPENTIN 100 MG CAPSULE PO SCH ×2 (10:30→21:26)
[2023-06-02] MEDS: DIVALPROEX NA *ER* EXTEND REL 500 MG TABLET.SA (FP) PO SCH ×2 (10:30→21:24)
[2023-06-02] MEDS: risperiDONE 0.25 MG TABLET PO SCH (10:31)
[2023-06-02] MEDS: NICOTINE 21 MG/24 HOURS TOPICAL PATCH TD SCH (10:31)
[2023-06-02] MEDS: POLYETHYLENE GLYCOL (HEALTHYLAX) 3350 17 GM PACKET PO SCH (10:31)
[2023-06-02] MEDS: CYANOCOBALAMIN 1,000 MCG TABLET (FP) PO SCH (10:31)
[2023-06-02] MEDS: ACETAMINOPHEN 325 MG TABLET (FP) PO PRN (13:38)
[2023-06-02] MEDS: risperiDONE 1 MG TABLET PO SCH (21:24)
[2023-06-02] MEDS: ATORVASTATIN CA 20 MG TABLET (FP) PO SCH (21:24)
[2023-06-02] MEDS: PRAMIPEXOLE DIHYDROCHLORIDE 0.25 MG TABLET PO SCH (21:25)
[2023-06-03] MEDS: INSULIN SLIDING SCALE (NOVOLOG) 1 VIAL SQ SCH ×4 (06:15→22:08)
[2023-06-03] MEDS: LEVOTHYROXINE NA 100 MCG TABLET (FP) PO SCH (06:16)
[2023-06-03] MEDS: GABAPENTIN 100 MG CAPSULE PO SCH ×2 (09:57→22:05)
[2023-06-03] MEDS: SERTRALINE HCL 50 MG TABLET (FP) PO SCH (09:57)
[2023-06-03] MEDS: NICOTINE 21 MG/24 HOURS TOPICAL PATCH TD SCH (09:57)
[2023-06-03] MEDS: DIVALPROEX NA *ER* EXTEND REL 500 MG TABLET.SA (FP) PO SCH ×2 (09:57→22:05)
[2023-06-03] MEDS: APIXABAN 2.5 MG TABLET PO SCH ×2 (09:58→22:05)
[2023-06-03] MEDS: CYANOCOBALAMIN 1,000 MCG TABLET (FP) PO SCH (09:58)
[2023-06-03] MEDS: FOLIC ACID 1 MG TABLET (FP) PO SCH (09:58)
[2023-06-03] MEDS: POLYETHYLENE GLYCOL (HEALTHYLAX) 3350 17 GM PACKET PO SCH (09:58)
[2023-06-03] MEDS: risperiDONE 0.25 MG TABLET PO SCH (09:58)
[2023-06-03] MEDS: clonazePAM 0.5 MG TABLET PO SCH ×2 (09:58→22:05)
[2023-06-03] MEDS: ACETAMINOPHEN 325 MG TABLET (FP) PO PRN ×2 (09:59→18:04)
[2023-06-03] MEDS: risperiDONE 1 MG TABLET PO SCH (20:12)
[2023-06-03] MEDS: ATORVASTATIN CA 20 MG TABLET (FP) PO SCH (22:05)
[2023-06-03] MEDS: PRAMIPEXOLE DIHYDROCHLORIDE 0.25 MG TABLET PO SCH (22:05)
[2023-06-04] MEDS: INSULIN SLIDING SCALE (NOVOLOG) 1 VIAL SQ SCH ×3 (06:25→16:53)
[2023-06-04] MEDS: LEVOTHYROXINE NA 100 MCG TABLET (FP) PO SCH (06:26)
[2023-06-04] MEDS: CYANOCOBALAMIN 1,000 MCG TABLET (FP) PO SCH (10:48)
[2023-06-04] MEDS: APIXABAN 2.5 MG TABLET PO SCH (10:48)
[2023-06-04] MEDS: FOLIC ACID 1 MG TABLET (FP) PO SCH (10:48)
[2023-06-04] MEDS: GABAPENTIN 100 MG CAPSULE PO SCH (10:48)
[2023-06-04] MEDS: clonazePAM 0.5 MG TABLET PO SCH (10:48)
[2023-06-04] MEDS: SERTRALINE HCL 50 MG TABLET (FP) PO SCH (10:48)
[2023-06-04] MEDS: DIVALPROEX NA *ER* EXTEND REL 500 MG TABLET.SA (FP) PO SCH (10:48)
[2023-06-04] MEDS: NICOTINE 21 MG/24 HOURS TOPICAL PATCH TD SCH (10:48)
[2023-06-04] MEDS: POLYETHYLENE GLYCOL (HEALTHYLAX) 3350 17 GM PACKET PO SCH (10:49)
[2023-06-04] MEDS: risperiDONE 0.25 MG TABLET PO SCH (10:50)
[2023-06-04 10:51] LABS: BASO % 0.5 % (0-2.0); HEMATOCRIT 34.9 % (35.4-49); HEMOGLOBIN 11.7 GM/dL (11.7-16.9); LYMPH % 51.7 % (8-40); MCH 31.7 pg (25.7-33.7); MCHC 33.4 g/dl (32.0-35.9); MEAN CELL VOLUME 94.9 fl (80-96); MEAN PLT VOLUME 8.6 fl (7.5-11.1); MONO % 11.5 % (3.8-10.2); NEUT % 35.3 % (42.8-82.8); PLATELET COUNT 261 10^3/uL (134-434); RBC 3.68 M/mm3 (4.00-5.60); RDW 15.5 % (11.9-15.9); WHITE BLOOD COUNT 7.1 K/mm3 (4.0-10.0)
[2023-06-04 11:12] LABS: POTASSIUM 3.8 mmol/L (3.5-5.1)
[2023-06-04 11:19] LABS: BLOOD UREA NITROGEN 15.5 mg/dL (7-18); CALCIUM 8.4 mg/dL (8.5-10.1)
[2023-06-04 11:20] LABS: ALBUMIN 2.7 g/dl (3.4-5.0)
[2023-06-04 11:21] LABS: BILIRUBIN,TOTAL 0.3 mg/dL (0.2-1); TOT PROT 5.5 g/dl (6.4-8.2)
[2023-06-04 15:09] VITALS: BP 122/76; PULSE 67; RESP 16; TEMP 97.8
== END 2023-06-04 17:09 | DRG 556 ==
LOC: JER 09:00 → JERBED 15:42 → J5S 17:13 → OBSVTOIN 05-31 14:27
PROVIDERS: ADMIT Internal Medicine; ATTEND Internal Medicine
DX: R26.2 Difficulty in walking, not elsewhere classified (principal); G91.0 Communicating hydrocephalus; I10 Essential (primary) hypertension; E03.9 Hypothyroidism, unspecified; E78.5 Hyperlipidemia, unspecified; E11.9 Type 2 diabetes mellitus without complications; F25.9 Schizoaffective disorder, unspecified; F10.10 Alcohol abuse, uncomplicated; F31.9 Bipolar disorder, unspecified; M54.2 Cervicalgia
CPT/HCPCS: 36415; 70450-TC; 72131-TC; 72192-TC; 80048; 80053; 82962; 83036; 83735; 84443; 84484; 85025; 85027; 87635; 93005; 93010; 97116-GP; 97162-GP; 99285-25; G0378